=== PATIENT | female | born 1990 | race Caucasian/White ===

== ENCOUNTER 2017-08-25 23:29 | Inpatient (IN) ==
[2017-08-25] MEDS ORDERED: Naloxone 0.4 MG/ML INJ IVP PRN (23:35)
[2017-08-25] MEDS ORDERED: *HR* Nalbuphine 20 MG/ML AMPUL IVP PRN (23:35)
[2017-08-25] MEDS ORDERED: Famotidine 20 MG/2 ML VIAL IVP PRN (23:35)
[2017-08-25] MEDS ORDERED: Penicillin G Potassium 5,000,000 UNIT in 0.9 % Sodium Chloride Mini Bag 100 ML IVPB ONE (23:35)
[2017-08-25] MEDS ORDERED: Ondansetron 4 MG/2 ML VIAL IVP PRN (23:35)
[2017-08-25] MEDS ORDERED: Ringers Solution, Lactated 1,000 ML IVC SCH (23:45)
--- NOTE | 2017-08-25 23:47 | OB/GYN History & Physical ---
Date of Encounter: 08/25/17 Time of Encounter: 23:44 Assessment and Plan (1) Postmaturity , 40-42 weeks gestation Current visit: Yes Status: Acute monitoring Induction as previously planned (2) GBS (group B Streptococcus carrier), +RV culture, currently Current visit: Yes Status: Acute PCN-G throughout labor History of Present Illness Chief complaint: Rule out labor HPI: Ms. Zavala is a 26 year old female at 40w5d who arrives this evening with complaint of possible contractions. Patient is scheduled for induction in the AM for post date . She reports positive movement, denies leakage of fluid, and bleeding. Blood type O+ GBS positive HbSAG negative Rubella Immune Varicella Immune T. Pall Immune Past Med Surg Social Fam HX - Past Medical History Source: patient Medical history: no medical history, other (IBS) Psychiatric history: no psych history - Past Surgical History Surgical History: no surgical history - Social History Smoking Status: Never smoker Smokeless Tobacco Status: No Alcohol use: none Drug use: none Current living situation: Home - Independent Activity Level: Independent ambulation Recent Out of Country Travel Within the Last 8 Weeks: No Exposure or Possible Exposure to Illness During Travel: No Obstetrical History - Pregnancies : 1 Para: 0 Term: 0 : 0 Ab's: 0 Livin Medications and Allergies Amoxicillin/Clavulanate [Augmentin] 875 mg PO BID #14 tablet 01/28/17 [Rx] 3 Allergy/AdvReac Type Severity Reaction Status Date / Time No Known Allergies Allergy Verified 08/25/17 23:36 Exam - Constitutional Constitutional: well developed, well nourished, no acute distress - HEENT HEENT: Normocephaly, Mucus Membranes Moist - Neck Neck exam: full ROM, normal inspection - Lungs Respiratory exam: CTAB - Cardiovascular Cardiovascular exam: RRR, +S1, +S2 - Breasts Breast: bilateral: normal - Abdomen Abdomen: Present: bowel sounds normal, gravid, non tender - Extremities Extremities exam: full ROM, normal capillary refill, normal inspection, warm - Vagina Vagina: Present: normal moisture - Cervix Dilation: 4 Effacement: 80 Station: -1 - Uterus Uterus exam: Present: normal size Results All other labs normal. - VTE Reasons for not Prescribing Prophylaxis: Treatment not Indicated - Low risk for VTE
[2017-08-26 00:10] LABS: Basophils % 0.2 %; Eosinophils # 0.2 K/mcL (0.0-0.6); Eosinophils % 1.7 %; Hematocrit 40.2 % (35.3-44.9); Hemoglobin 13.7 g/dL (11.5-15.4); Immature Granulocytes % 0.4 % (0-4); Lymphocytes # 1.6 K/mcL (0.6-4.6); Lymphocytes % 13.3 %; Mean Corpuscular HGB Conc 34.1 g/dL (31.6-35.5); Mean Corpuscular Hemoglobin 29.4 pg (28.0-33.3); Mean Corpuscular Volume 86.3 fL (83.0-100.0); Mean Platelet Volume 13.7 fL (9.4-12.4); Monocytes # 1.1 K/mcL (0.0-1.3); Monocytes % 9.5 %; Platelet Count 175 K/mcL (140-400); Red Blood Count 4.66 M/mcL (3.82-4.97); Red Cell Distribution Width 13.3 % (11.5-14.5); Segmented Neutrophils % 74.9 %
[2017-08-26 00:30] LABS: Amphetamine Screen,Urine Negative ng/mL (Cutoff=1000); Barbiturate Screen,Urine Negative ng/mL (Cutoff=200); Benzodiazepines Screen,Urine Negative ng/mL (Cutoff=200); Cannabinoid Screen,Urine Negative ng/mL (Cutoff = 50); Cocaine Screen,Urine Negative ng/mL (Cutoff= 300); Opiate Screen,Urine Negative ng/mL (Cutoff=300); Phencyclidine Screen,Urine Negative ng/mL (Cutoff=25)
[2017-08-26] MEDS ORDERED: Oxytocin 20 units/ LR 1000 mL 20 UNIT/1,000 ML BAG IVC ONE (00:52)
[2017-08-26] MEDS ORDERED: Oxytocin 20 units/ LR 1000 mL 20 UNIT/1,000 ML BAG IVC SCH ×3 (04:15→17:39)
[2017-08-26] MEDS: Penicillin G Potassium 2,500,000 UNIT in D5% in Water 100 ML IVPB SCH ×3 (05:00→13:34)
[2017-08-26] MEDS ORDERED: Epidural Premix (fent/bupiv) 110 ML EP ONE (08:44)
[2017-08-26] MEDS ORDERED: EPHEDrine 50 MG/ML VIAL ONE (09:15)
[2017-08-26] MEDS ORDERED: *HR* Phenylephrine 10 MG/ML VIAL ONE (09:17)
--- NOTE | 2017-08-26 09:30 | Anesthesia Evaluation PreOp ---
Date of Encounter: 08/26/17 Time of Encounter: 09:02 - Past History Planned Operation: vaginal del, G1 induction Cardiac History: HTN (on and off since teenage years, questionable anxiety) Pulmonary History: Denies Any Significant HX TRIMMER AND REINFORCER History: Denies Any Significant HX Other Medical History: Other (right sciatic nerve issues, non dependent radiculopathy reported.) Anesthesia History: No Prior Anesthetic Complications, Past Anesthesia Alcohol Use: none Drug use: none Medications and Allergies Claritin 08/26/17 [History] Pantoprazole 08/26/17 [History] Tablet 08/26/17 [History] 3 Allergy/AdvReac Type Severity Reaction Status Date / Time No Known Allergies Allergy Verified 08/25/17 23:36 Anesthesia Results - Labs 08/25/17 23:55 Anesthesia Exam - HEENT Pupil (Motor): Pupils equal Mallampati: II Teeth: Normal Oral Opening: Greater than 3 - TRIMMER AND REINFORCER LOC: Oriented [employer]IMMER AND REINFORCER Motor: Normal RUE, Normal LUE, Normal RLE, Normal LLE, Normal Face TRIMMER AND REINFORCER Sensory: Normal: RUE, LUE, RLE, LLE, Face - Cardiac Rhythm: Regular Murmur: None - Pulmonary Breath Sounds: bilateral Clear Respiratory Effort: Symmetrical Anesthesia Assess/Plan ASA Score: 2 Modified [place] Scale for Level of Consciousness: Cooperative, oriented, and tranquil Anesthetic Plan: General, Regional Monitoring Plan: Standard Monitors
--- NOTE | 2017-08-26 09:34 | Anesthesia Procedures ---
Date of Encounter: 08/26/17 Time of Encounter: 09:02 Procedures: Anesthesia - Epidural/Spinal Patient ID/Chart reviewed: Yes Patient examined: Yes OB Eval: Gestational age: term OB Eval: : 1 OB Eval: Contractions: Non-stressed pattern Supplemental Oxygen: None/Room Air Site Prep: Aseptic Technique, Sterile prep and drape, 0.5% Chlorhexidine/Alcohol Patient position: upright Local Anesthetic: Lidocaine 1% Amount of Local Anesthetic used: 2 Touhy Needle Gauge: 18 Touhy Needle Depth (cm): 7 Catheter Depth at Skin (cm): 10 Test Dose (1.5% Lido + Epi): Volume given (mls): 3 Test Dose Result: Negative Loading Dose: Other: 10ml from solution Loading Dose Administered: Thru Catheter Infusion Med: 0.125% Bupivacaine w/ 2 mcg/ml Fentanyl Infusion Rate (mls/hr): [address]: Tegaderm, Tape Interspace Used: L3-L4 Loss of Resistance (BUDDY): Yes (saline) Blood: No CSF: No Paresthesia: Yes (very brief right sided, immediatly resolved. ) Procedure: vss though out, FHR stable per RN's
--- NOTE | 2017-08-26 10:16 | OB Labor Progress Note ---
Date of Encounter: 08/26/17 Time of Encounter: 10:14 Labor Progress Note - Subjective Subjective: Pt resting comfortably in bed after epidural placement. Denies pain at this time. - Cervix Cervix: 5/100/-1 - Heart Tones Heart Tones: 130 bpm, moderate variability, +15x15 aceels, no decels. - [place]: 2-3 min - Interventions Interventions: SVE, AROM for large amount of clear fluid, IUPC placed - Plan Plan: Continue labor management Increase pitocin as needed.
--- NOTE | 2017-08-26 13:00 | OB Labor Progress Note ---
Date of Encounter: 08/26/17 Time of Encounter: 12:30 Labor Progress Note - Subjective Subjective: Patient complaining of vaginal/rectal pressure with contractions. - Cervix Cervix: Complete +1 - Heart Tones Heart Tones: 130 bpm, moderate variability, +15x15 accels, early decelerations noted. - [place]: 2-3 min - Interventions Interventions: SVE Pushed with one contraction, minimal movement with maternal pushing effort. - Plan Plan: Continue labor management Labor down
--- NOTE | 2017-08-26 15:32 | OB/GYN Procedure Note ---
Delivery - Delivery Date: 08/26/17 Provider: Angie Wallace Delivery induction: oxytocin Delivery augmentation: rupture of membranes Delivery monitor: external FHT, internal uterine Anesthesia: epidural Estimated Blood Loss: 150 - Infant (s) A Infant Delivery Date: 08/26/17 Delivery Time: 14:46 Presentation: vertex Position: SILVA Route of delivery: Gender: Female Viability: Viable Pounds: 7 Ounces: 0 Weight Gram: 3.165 kg at 1 minute: 5 at 5 mins: 9 at 10 mins: 9 Shoulder Dystocia: not encountered Specimens collected: cord blood, venous cord gases Placenta: spontaneous Cord: 3 umbilical vessels - Repair Episiotomy: none Laceration Description: Perineal - 2nd Degree, Vaginal (bilateral) - Complications Delivery complications: none Delivery comments: Pt progressed normally to for viable female weighing 7lbs with apgars 5 at one minute and 9 at five and ten minutes respectively. After a brief delay the cord was clamped and cut and the placenta delivered spontaneous and intact. Bilateral vaginal and a second degree perineal laceration were repaired with 3-0 Vicryl. Mother and baby stable in kangaroo care following procedure. EBL 150ml. - Disposition Mom disposition: stable in LDR disposition: stable in LDR
[2017-08-26] MEDS ORDERED: Measles/Mumps/Rubella Vacc 0.5 ML VIAL SQ PRN (17:39)
[2017-08-26] MEDS ORDERED: Benzocaine/Menthol 56 GM AEROSOL SPRAY TP PRN (17:39)
[2017-08-26] MEDS ORDERED: Acetaminophen 325 MG TABLET PO PRN (17:39)
[2017-08-26] MEDS ORDERED: Lanolin 28 GM TUBE TP PRN (17:39)
[2017-08-26] MEDS: Ibuprofen 600 MG TABLET PO PRN (22:20)
[2017-08-27 08:23] VITALS: BP 112/75
[2017-08-27] MEDS ORDERED: Prenatal Vit/FA 1 EACH TABLET PO SCH (09:00)
--- NOTE | 2017-08-27 09:10 | Discharge Summary ---
Date of Encounter: 08/27/17 Time of Encounter: 09:08 - Discharge Diagnosis (1) Postmaturity , 40-42 weeks gestation Priority: Secondary Status: Acute (2) GBS (group B Streptococcus carrier), +RV culture, currently Priority: Secondary Status: Acute (3) Vaginal delivery Priority: Primary Status: Acute Comments: continue routine care discharge home today follow up in 4-6 weeks (4) Second degree perineal laceration Priority: Secondary Status: Acute Comments: continue routine care colace daily (5) Breast feeding status of mother Priority: Secondary Status: Acute Comments: support prn - Discharge Medications Prescriptions: Ibuprofen [Motrin] 600 mg PO Q6HR PRN #60 tablet PRN Reason: Cramping Breast Pump [BREAST PUMP] 1 each .ROUTE AD #1 each Docusate [Colace] 100 mg PO BID #60 capsule Home Medications: Claritin 08/26/17 [History] Pantoprazole 08/26/17 [History] Breast Pump [BREAST PUMP] 1 each .ROUTE AD #1 each 08/27/17 [Rx] Docusate [Colace] 100 mg PO BID #60 capsule 08/27/17 [Rx] Ibuprofen [Motrin] 600 mg PO Q6HR PRN #60 tablet 08/27/17 [Rx] Lanolin 1 appl TP Q4HR PRN tube 08/27/17 [Rx] Vit/FA 1 each PO DAILY tablet 08/27/17 [Rx] Allergies/Adverse Reactions: 3 Allergy/AdvReac Type Severity Reaction Status Date / Time No Known Allergies Allergy Verified 08/25/17 23:36 Data Procedures and tests throughout hospitalization: Laboratory Tests 08/25/17 08/25/17 23:55 23:55 WBC 12.0 H RBC 4.66 Hgb 13.7 Hct 40.2 MCV 86.3 MCH 29.4 MCHC 34.1 RDW 13.3 Plt Count 175 MPV 13.7 H Immature Gran % 0.4 Seg Neutrophils % 74.9 Lymphocytes % 13.3 Monocytes % 9.5 Eosinophils % 1.7 Basophils % 0.2 Neutrophils # 9.0 H Lymphocytes # 1.6 Monocytes # 1.1 Eosinophils # 0.2 Basophils # 0.0 Urine Opiates Screen Negative Ur Barbiturates Screen Negative Ur Phencyclidine Scrn Negative Ur Amphetamines Screen Negative U Benzodiazepines Scrn Negative Urine Cocaine Screen Negative U Marijuana (THC) Screen Negative Date of admission: 08/25/17 23:32 Primary care physician: Karan Lieberman MD Consults: 08/26/17 17:39 Consult to Passenger Service Supervisor [CONS] Routine Comment: Vaginal delivery, consult needed Discharging clinician: Carmen Sanchez Anticipated date of discharge: 08/27/17 - Patient Status Disposition: Home, Self-Care Condition: Good Functional capacity at discharge: independent ambulation - Discharge Instructions Follow Up With: Karan Lieberman MD [Primary Care Provider] - Angie Wallace CNM [Non-Partnered Physician] - - Diet and Activity Activity: increase activity as tolerated Diet: regular diet Hospital Course Reason for admission: active labor Delivery: Episiotomy: none Laceration: 2nd degree Other procedures: none complications: none Discharge diagnosis: post term preg-delivered baby: female (breast feeding) Time Attestation: Total time spent providing and/or coordinating discharge services: Time Spent: Less than 30 minutes Exam - Constitutional Vitals: Temp Pulse Resp BP Pulse Ox 97.7 F 78 16 112/75 98 08/27/17 07:30 08/27/17 07:30 08/27/17 07:30 08/27/17 07:30 08/27/17 04:00 General appearance IM: A&O X 3, pleasant, answers questions appropriately - Respiratory Respiratory exam: Present: CTAB - Cardiovascular Cardiovascular exam IM: Present: RRR, +S1, +S2 - GI/Abdominal GI/Abdominal exam IM: normal bowel sounds - Uterine Tone: Firm Uterus Position: 1 Finger Below Umbilicus, Midline - Neurological Exam Neurological exam: alert, oriented X3, reflexes normal
[2017-08-27] MEDS: Ibuprofen 600 MG TABLET PO PRN (10:47)
== END 2017-08-27 16:32 | disposition home or self-care (01) | DRG 774 ==
LOC: 1NENULAB 23:32 → 1NENUOBS 08-26 17:19
PROVIDERS: ADMIT Advanced Practice Midwife; ATTEND Advanced Practice Midwife

== ENCOUNTER 2019-01-06 08:00 | Inpatient (IN) ==
[2019-01-06] MEDS ORDERED: *HR* Nalbuphine 10 MG/ML AMPUL IVP PRN (08:53)
[2019-01-06] MEDS ORDERED: Ondansetron 4 MG/2 ML VIAL IVP PRN (08:53)
[2019-01-06] MEDS ORDERED: Metoclopramide 10 MG/2 ML VIAL IVP PRN (08:53)
[2019-01-06] MEDS ORDERED: Famotidine 20 MG/2 ML VIAL IVP PRN (08:53)
[2019-01-06] MEDS ORDERED: Naloxone 0.4 MG/ML INJ IVP PRN (08:53)
[2019-01-06] MEDS ORDERED: Ringers Solution, Lactated 1,000 ML IVC SCH (09:00)
[2019-01-06] MEDS ORDERED: Oxytocin 20 units/ LR 1000 mL 20 UNIT/1,000 ML BAG IVC SCH ×2 (09:00→19:57)
[2019-01-06 09:15] LABS: Basophils % 0.2 %; Eosinophils # 0.1 K/mcL (0.0-0.6); Eosinophils % 1.1 %; Hematocrit 39.1 % (35.3-44.9); Hemoglobin 12.9 g/dL (11.5-15.4); Immature Granulocytes % 0.6 % (0-4); Lymphocytes # 1.9 K/mcL (0.6-4.6); Mean Corpuscular Hemoglobin 26.9 pg (28.0-33.3); Mean Corpuscular Volume 81.5 fL (83.0-100.0); Mean Platelet Volume 14.3 fL (9.4-12.4); Monocytes % 8.4 %; Neutrophils # 9.3 K/mcL (1.6-8.9); Platelet Count 210 K/mcL (140-400); Segmented Neutrophils % 74.7 %
[2019-01-06 09:23] LABS: Amphetamine Screen,Urine Negative ng/mL (Cutoff=1000); Barbiturate Screen,Urine Negative ng/mL (Cutoff=200); Benzodiazepines Screen,Urine Negative ng/mL (Cutoff=200); Cannabinoid Screen,Urine Negative ng/mL (Cutoff = 50); Cocaine Screen,Urine Negative ng/mL (Cutoff= 300); Opiate Screen,Urine Negative ng/mL (Cutoff=300); Phencyclidine Screen,Urine Negative ng/mL (Cutoff=25)
--- NOTE | 2019-01-06 11:05 | OB/GYN History & Physical ---
Date of Encounter: 01/06/19 Time of Encounter: 11:04 Assessment and Plan (1) 39 weeks gestation of Current visit: Yes Status: Acute Admit for elective IOL GBS negative Pitocin per policy Epidural after consistent contractions Consider AROM after epidural placement Anticipate vaginal delivery POC per consult with Dr East History of Present Illness Chief complaint: Induction of term labor HPI: Ms. Zavala is a 28 year old at 39 weeks and 3 days that presents to labor and delivery for elective term induction of labor. Her course has been complicated by chronic headaches, obesity, and sciatic nerve pain. She also was diagnosed with polyhydramnious which spontaneously resolved and torch titers were negative for. She was seen by the midwives for her care. Imagin12/14/18 36w1d DWIGHT 25.9cm EFW 6#14oz 80.4% Labs: GBS Negative Hep B Nonreactive HIV Nonreactive RPR Negative Varicella Nonimmune Rubella Nonimmune Blood type O+ Past Med Surg Social Fam HX - Past Medical History Medical history: other Additional medical history: sciatic nerve pain, torn ligament in left wrist Psychiatric history: anxiety, ADHD - Past Surgical History Surgical History: no surgical history - Social History Smoking Status: Never smoker Smokeless Tobacco Status: No Alcohol use: none Drug use: none - Family History Mother Living Status: Still Living Hx Family Cardiac Disorders: Yes (HLD) Hx Family Respiratory Disorders: Yes (Asthma) Hx Family Endocrine Disorder: Yes (DM) Obstetrical History - Pregnancies : 2 Para: 1 Term: 1 : 0 Ab's: 0 Livin Medications and Allergies Allergy/AdvReac Type Severity Reaction Status Date / Time No Known Allergies Allergy Verified 08/04/18 10:03 Review of System OB All systems PM: reviewed and no additional remarkable complaints except as stated Exam - Constitutional Constitutional: well developed, well nourished, no acute distress, obese - HEENT HEENT: Normocephaly, Mucus Membranes Moist - Neck Neck exam: full ROM - Lungs Respiratory exam: CTAB - Cardiovascular Cardiovascular exam: RRR, +S1, +S2 - Abdomen Abdomen: Present: bowel sounds normal, gravid, non tender - Extremities Extremities exam: normal capillary refill, normal inspection, radial pulses palpable and symmetrical Deep Tendon Reflex Grade: 2+ Normal - Vagina Vagina: Present: normal moisture - Cervix Dilation: 5 (5-6 per RN exam) Effacement: 80 Station: -2 - Uterus Uterus exam: Present: enlarged (per gestational age), normal contour. Absent: tender - Anus/Rectum Anus/Rectum: Present: normal perianal skin Results Result Diagrams: 01/06/19 08:40 Abnormal lab results WBC 12.4 K/mcL (4.3-11.1) H 01/06/19 08:40 MCV 81.5 fL (83.0-100.0) L 01/06/19 08:40 MCH 26.9 pg (28.0-33.3) L 01/06/19 08:40 MPV 14.3 fL (9.4-12.4) H 01/06/19 08:40 9.3 K/mcL (1.6-8.9) H 01/06/19 08:40 All other labs normal. - VTE Reasons for not Prescribing Prophylaxis: Treatment not Indicated - Low risk for VTE
[2019-01-06] MEDS ORDERED: Epidural Premix (fent/bupiv) 110 ML EP ONE (12:25)
[2019-01-06] MEDS ORDERED: Epidural Premix (fent/bupiv) 110 ML EP SCH (12:30)
--- NOTE | 2019-01-06 12:58 | Anesthesia Evaluation PreOp ---
Date of Encounter: 01/06/19 Time of Encounter: 12:56 - Past History Planned Operation: KEYLA Cardiac History: Denies any Significant Hx Pulmonary History: Asthma RN CAMP History: Denies Any Significant HX Other Medical History: Other (Previous back pain that occured prior to first . No recent issues.) Anesthesia History: No Prior Anesthetic Complications, Past Anesthesia : Yes (39.3) Alcohol Use: none Drug use: none Medications and Allergies Allergy/AdvReac Type Severity Reaction Status Date / Time No Known Allergies Allergy Verified 08/04/18 10:03 - Meds/Allergy Pre-op Review Medications Reviewed: Yes Allergies Reviewed: Yes Beta Blockers on Current Med List: No Anesthesia Results - Labs 01/06/19 08:40 Anesthesia Exam O2 Sat Height 1.6 m Weight 116.6 kg NPO (# of Hours): 4 Pain Scale: 2 Pain Scale Used: Numeric (1 - 10) - HEENT Pupil (Motor): Pupils equal Mallampati: II Teeth: Normal Oral Opening: Greater than 3 - RN CAMP LOC: Oriented RN CAMP Motor: Normal RUE, Normal LUE, Normal RLE, Normal LLE, Normal Face RN CAMP Sensory: Normal: RUE, LUE, RLE, LLE, Face - Cardiac Rhythm: Regular Murmur: None JVD: No Carotid Bruit: No - Pulmonary Breath Sounds: bilateral Clear Respiratory Effort: Symmetrical Anesthesia Assess/Plan ASA Score: 3 (BMI = 45) Level of consciousness: Cooperative, Oriented Anesthetic Plan: General, Epidural Autologous Blood: Yes Monitoring Plan: Standard Monitors
--- NOTE | 2019-01-06 13:01 | Anesthesia Procedures ---
Date of Encounter: 01/06/19 Time of Encounter: 12:59 Procedures: Anesthesia - Epidural/Spinal Patient ID/Chart reviewed: Yes Patient examined: Yes OB Eval: Gestational age: 39.3 OB Eval: : 2 OB Eval: Hx Para: 1 OB Eval: Dilated at (cm): 5 OB Eval: Contractions: Non-stressed pattern Consent Obtained: Yes Supplemental Oxygen: None/Room Air Site Prep: Aseptic Technique, Sterile prep and drape, Povidone-Iodine 1% Patient position: upright Local Anesthetic: Lidocaine 1% Amount of Local Anesthetic used: 3 Touhy Needle Gauge: 18 Touhy Needle Depth (cm): 10 Catheter Depth at Skin (cm): 20 Test Dose (1.5% Lido + Epi): Volume given (mls): 5 Test Dose Result: Negative Loading Dose: Other: 10mls of epidural pharm bag solution Loading Dose Administered: Thru Catheter Infusion Med: 0.125% Bupivacaine w/ 2 mcg/ml Fentanyl Infusion Rate (mls/hr): 14 ([id number]) Catheter Secured in Place: Tegaderm, Tape Interspace Used: L3-L4 Loss of Resistance (BUDDY): Yes Blood: No CSF: No Paresthesia: No Procedure: pt tolerated procedure well. no complications. vss. fhr stable.
--- NOTE | 2019-01-06 13:33 | Anesthesia Progress Note ---
Date of Encounter: 01/06/19 Time of Encounter: 13:31 Anesthesia Note - Note Note: 01/06/19 13:31 called for decreased b/p (95/54) and pt feeling some nausea. fluid bolus still going and patient lying on left side. treated with 100mcg phenylephrine. adequate b/p response to 120/66, 119/68, 116/64. pt feeling better. gtt decreased to 8ml/hr due to patient not feeling contractions 0/10.
--- NOTE | 2019-01-06 15:08 | OB Labor Progress Note ---
Date of Encounter: 01/06/19 Time of Encounter: 15:04 Labor Progress Note - Subjective Subjective: Patient resting comfortably in bed. States pain is located in her vagina, but tolerable. Epidural in place - Vital Signs Vital Signs: VSS - Cervix Cervix: 8-9/90/0 - Heart Tones Heart Tones: 120's with variables. moderate variability - Counce Counce: Contractions every 2-5 minutes, palpate firm - Interventions Interventions: AROM for copious amount of clear fluid; <1minute decels noted after AROM, intrauterine resuscitation began (repositioning and fluid bolus) and fetus returned to baseline FSE placed without difficulty; fetus and patient tolerated both well. - Plan Physician notified: No Plan: Continue routine labor management Augment with pitocin as needed Anticipate vaginal delivery POC per consult with Dr East
--- NOTE | 2019-01-06 17:46 | OB/GYN Procedure Note ---
Delivery - Delivery Date: 01/06/19 Provider: Sarika Lewis Intrapartum events: none Delivery induction: oxytocin Delivery augmentation: rupture of membranes Delivery monitor: external FHT, external uterine, internal FHT Anesthesia: local, epidural Quantitated Blood Loss: 100 - (s) A Infant Delivery Date: 01/06/19 Infant Delivery Time: 16:57 Presentation: vertex Position: MADYSON Route of delivery: Gender: Male Viability: Viable Pounds: 8 Ounces: 8 Weight Gram: 3.86 kg at 1 minute: 9 at 5 mins: 9 Shoulder Dystocia: not encountered Specimens collected: cord blood Placenta: spontaneous Cord: 3 umbilical vessels - Repair Episiotomy: none Laceration Description: Periurethral (superficial), Perineal - 1st Degree, Superficial (bilateral labial anterior to posterior) - Complications Delivery complications: none Delivery comments: Patient progressed to complete and began coached pushing to of viable vigorous male infant in the MADYSON position. Head delivered slowly, Dr East called to the room for possible shoulder dystocia and arrived quickly. Shoulders delivered within 30 seconds of head due to poor maternal effort; remainder of body followed quickly. No shoulder dystocia encountered. No nuchal cord encountered. No meconium encountered. Infant placed on maternal abdomen, warmed, dried, and stimulated. Apgars 9 and 9 at one and five minutes of age. Cord double clamped and cut after pulsations ceased with the assistance of FOB. Upon perineal inspection, a first degree perineal laceration and multiple bilateral superficial labial and bilateral periurethral lacerations were noted. The first degree was repaired with 4-0 monocryl in the usual fashion. The superficial and periurethral lacerations were left to heal by second intention. Placenta delivered spontaneously and appears grossly intact with 3 vessel cord. Fundus firm at U/2 with scant bleeding after placenta delivered. Dr East in room for delivery. EBL 100mL. and mother in skin to skin for recovery for 2 hours. - Disposition Mom disposition: stable in LDR disposition: stable in LDR
[2019-01-06] MEDS ORDERED: Oxytocin 20 units/ LR 1000 mL 20 UNIT/1,000 ML BAG IVC ONE (19:57)
[2019-01-06] MEDS ORDERED: Measles/Mumps/Rubella Vacc 0.5 ML VIAL SQ PRN (19:57)
[2019-01-06] MEDS ORDERED: Benzocaine/Menthol 56 GM AEROSOL SPRAY TP PRN (19:57)
[2019-01-06] MEDS: Ibuprofen 600 MG TABLET PO PRN (21:02)
[2019-01-06] MEDS: Acetaminophen 325 MG TABLET PO PRN (22:48)
[2019-01-07] MEDS: Ibuprofen 600 MG TABLET PO PRN ×3 (03:11→15:55)
--- NOTE | 2019-01-07 08:33 | Discharge Summary ---
Date of Encounter: 01/07/19 Time of Encounter: 08:31 - Discharge Diagnosis (1) Breast feeding status of mother Priority: Secondary Status: Acute (2) Vaginal delivery Priority: Primary Status: Acute Comments: Pt meeting all milestones. This am she is feeling a little bit nauseated. She believes this is because she ate a big breakfast and maybe ate too fast. She otherwise feels well. No headaches or vision changes. She desires discharge home this evening if feeling better. - Discharge Medications Prescriptions: New Ibuprofen [Motrin] 600 mg PO Q6HR PRN #30 tablet PRN Reason: Cramping Benzocaine/Menthol Baker [Dermoplast Baker] 1 appl TP QID PRN aerosol PRN Reason: See Comments Docusate [Colace] 100 mg PO BID #30 capsule Home Medications: Benzocaine/Menthol Baker [Dermoplast Baker] 1 appl TP QID PRN aerosol 01/07/19 [Rx] Docusate [Colace] 100 mg PO BID #30 capsule 01/07/19 [Rx] Ibuprofen [Motrin] 600 mg PO Q6HR PRN #30 tablet 01/07/19 [Rx] Allergies/Adverse Reactions: Allergy/AdvReac Type Severity Reaction Status Date / Time No Known Allergies Allergy Verified 08/04/18 10:03 Data Procedures and tests throughout hospitalization: Laboratory Tests 01/06/19 01/06/19 08:40 08:40 WBC 12.4 H RBC 4.80 Hgb 12.9 Hct 39.1 MCV 81.5 L MCH 26.9 L MCHC 33.0 RDW 14.0 Plt Count 210 MPV 14.3 H Immature Gran % 0.6 Seg Neutrophils % 74.7 Lymphocytes % 15.0 Monocytes % 8.4 Eosinophils % 1.1 Basophils % 0.2 Neutrophils # 9.3 H Lymphocytes # 1.9 Monocytes # 1.0 Eosinophils # 0.1 Basophils # 0.0 Urine Opiates Screen Negative Ur Barbiturates Screen Negative Ur Phencyclidine Scrn Negative Ur Amphetamines Screen Negative U Benzodiazepines Scrn Negative Urine Cocaine Screen Negative U Marijuana (THC) Screen Negative Ur Drug Screen Interp See Below Labs on day of discharge: Labs from last 24 hours 01/06/19 01/06/19 08:40 08:40 WBC 12.4 H RBC 4.80 Hgb 12.9 Hct 39.1 MCV 81.5 L MCH 26.9 L MCHC 33.0 RDW 14.0 Plt Count 210 MPV 14.3 H Immature Gran % 0.6 Seg Neutrophils % 74.7 Lymphocytes % 15.0 Monocytes % 8.4 Eosinophils % 1.1 Basophils % 0.2 Neutrophils # 9.3 H Lymphocytes # 1.9 Monocytes # 1.0 Eosinophils # 0.1 Basophils # 0.0 Urine Opiates Screen Negative Ur Barbiturates Screen Negative Ur Phencyclidine Scrn Negative Ur Amphetamines Screen Negative U Benzodiazepines Scrn Negative Urine Cocaine Screen Negative U Marijuana (THC) Screen Negative Ur Drug Screen Interp See Below Date of admission: 01/06/19 08:24 Consults: 01/06/19 19:57 Consult to Product Support Sales Representative [CONS] Routine Comment: Vaginal delivery, consult needed Discharging clinician: Angie Meyer Anticipated date of discharge: 01/07/19 - Patient Status Disposition: Home, Self-Care Condition: Good Functional capacity at discharge: independent ambulation Overall status at discharge: patient is progressing back to baseline - Discharge Instructions Follow Up With: Sarika Lewis CNM [Advanced Practice Nurse] - - Diet and Activity Activity: increase activity as tolerated Diet: regular diet Hospital Course Reason for admission: induction of labor Delivery: Episiotomy: none Laceration: 1st degree Other procedures: none complications: none Discharge diagnosis: IUP at term delivered [place] baby: male Hospital course: - Delivery Date: 01/06/19 Provider: Sarika Lewis Intrapartum events: none Delivery induction: oxytocin Delivery augmentation: rupture of membranes Delivery monitor: external FHT, external uterine, internal FHT Anesthesia: local, epidural Quantitated Blood Loss: 100 - Infant (s) A Delivery Date: 01/06/19 Infant Delivery Time: 16:57 Presentation: vertex Position: [place] Route of delivery: Gender: Male Viability: Viable Pounds: 8 Ounces: 8 Weight Gram: 3.86 kg at 1 minute: 9 at 5 mins: 9 Shoulder Dystocia: not encountered Specimens collected: cord blood Placenta: spontaneous Cord: 3 umbilical vessels - Repair Episiotomy: none Laceration Description: Periurethral (superficial), Perineal - 1st Degree, Superficial (bilateral labial anterior to posterior) Time Attestation: Total time spent providing and/or coordinating discharge services: Time Spent: Less than 30 minutes Exam - Constitutional Vitals: Temp Pulse Resp BP Pulse Ox 97.7 F 90 16 127/77 98 01/07/19 03:15 01/07/19 03:15 01/07/19 03:15 01/07/19 03:15 01/06/19 21:57 General appearance IM: A&O X 3 - Respiratory Respiratory exam: Present: CTAB - Cardiovascular Cardiovascular exam IM: Present: RRR - GI/Abdominal GI/Abdominal exam IM: soft, no peritoneal signs - Uterine Tone: Firm Uterus Position: At Umbilicus - Extremities Exam Extremities exam IM: Present: pedal edema - Neurological Exam Neurological exam: normal gait, oriented X3 - Psychiatric Additional comments: reports good mood
[2019-01-07] MEDS ORDERED: Prenatal Vit/FA 1 EACH TABLET PO SCH (09:00)
[2019-01-07] MEDS: Acetaminophen 325 MG TABLET PO PRN (12:02)
[2019-01-07 16:16] VITALS: BP 133/95
== END 2019-01-07 16:48 | disposition home or self-care (01) | DRG 807 ==
LOC: 1NENULAB 08:24 → 1NENUOBS 20:02
PROVIDERS: ADMIT Advanced Practice Midwife; ATTEND Advanced Practice Midwife